=== PATIENT | female | born 1965 | race American Indian/Alaskan Native ===

== ENCOUNTER 2017-03-11 17:01 | Emergency (ER) | payer SELFPAY ==
[2017-03-11 17:32] VITALS: BP 127/76
== END 2017-03-12 01:10 | disposition left against medical advice (07) ==
LOC: ED 17:01
DX: M79.672 Pain in left foot (principal); Z53.21 Procedure and treatment not carried out due to patient leaving prior to being seen by health care provider

== ENCOUNTER 2017-04-02 17:39 | Emergency (ER) | payer BC ==
[2017-04-02] MEDS ORDERED: MOTRIN PO ONE (19:33)
[2017-04-02] MEDS ORDERED: ZOFRAN ODT PO ONE (19:33)
--- NOTE | 2017-04-03 01:35 | Emergency Department Report ---
Minor Respiratory - HPI Chief Complaint: Upper Respiratory Infection Stated Complaint: FLU LIKE SYMPTOMS/ASTHMA Time Seen by Provider: 04/03/17 00:32 Duration: 1 Day Pain Location: Throat, Other (body ache, headache and sore throat 8 out of 10 and aching) Severity: severe Minor Respiratory: Yes Rhinorrhea (congestion), Yes Sore Throat (denies Casa ), Yes Able to Tolerate Fluids, Yes Cough (dry cough), Yes Sick Contacts, Yes Fever (he says she took medication for cough and cold with fever), No Ear Pain, No Hemoptysis, No Chest Pain, No Shortness of Breath Other History: Patient here reports that she's been having body aches, headache , cough, runny nose and nausea times one day. Reported that she's been having fever and chills. Pain is 8 out of 10 and achy. [id number] cough and cold medication taken without any relief. Patient says she is here to get checked with his she wants to make sure she doesn't have the flu. Denies any abdominal or back pain. Denies any neck pain or stiffness. Denies any urinary burning frequency or urgency. Patient has past medical history of breast cancer with left lumpectomy. She also has a history of asthma and she is on asthma medication. She denies any wheezing or stridor. ED Review of Systems ROS: Stated complaint: FLU LIKE SYMPTOMS/ASTHMA Other details as noted in HPI Comment: All other systems reviewed and negative Constitutional: chills, fever Eyes: denies: eye pain, eye discharge, vision change ENT: throat pain, congestion. denies: ear pain, dental pain Respiratory: cough. denies: see HPI, orthopnea, shortness of breath, SOB with exertion, SOB at rest, stridor, wheezing Cardiovascular: denies: chest pain, palpitations, dyspnea on exertion, orthopnea , edema, syncope Gastrointestinal: nausea. denies: abdominal pain, vomiting, diarrhea, constipation, hematemesis, melena, hematochezia Genitourinary: denies: urgency, dysuria, frequency, hematuria, discharge Musculoskeletal: myalgia. denies: back pain, joint swelling, arthralgia Skin: denies: rash Neurological: headache. denies: weakness, numbness, paresthesias, confusion, abnormal gait, vertigo ED Past Medical Hx - Past Medical History Previous Medical History?: Yes Hx of Cancer: Yes (Left Breast) Hx Asthma: Yes Additional medical history: BREAST CANCER - Surgical History Past Surgical History?: Yes Additional Surgical History: Left Salpigectomy/ PORT INSERTION/ Left LUMPECTOMY - Family History Family history: hypertension - Social History Smoking Status: Never Smoker Substance Use Type: None - Medications Home Medications: Home Medications Medication Instructions Recorded Confirmed Last Taken Type Amoxicillin/K Clav Tab [Augmentin 1 tab PO Q12HR 10 Days #20 tab 04/03/17 Unknown Rx 875 mg] Cetirizine HCl [ZyrTEC] 10 mg PO QAM 14 Days #14 capsule 04/03/17 Unknown Rx Fluticasone [Flonase] 1 spray NS QDAY 14 Days #1 bottle 04/03/17 Unknown Rx Ibuprofen [Motrin] 600 mg PO Q8H PRN 5 Days #15 tablet 04/03/17 Unknown Rx Promethazine [Phenergan TAB] 25 mg PO Q8HR PRN 4 Days #12 tab 04/03/17 Unknown Rx guaiFENesin/CODEINE [Robitussin AC] 5 ml PO Q8H PRN 5 Days #75 04/03/17 Unknown Rx oral.liqd Minor Respiratory Exam - Exam General: Vital signs noted. No distress. Alert and acting appropriately. This is a 51-year-old female well-nourished well-developed in no acute distress. HEENT: Yes Moist Mucous Membranes (uvula is midline and oral airways patent), Yes Rhinorrhea (nasal mucosa congested with erythema), No Pharyngeal Erythema, No Pharyngeal Exudates, No Conjuctival Injection, No Frontal Tenderness, No Maxillary Tenderness Ear: Neither TM Bulge, Neither TM Erythema (bilateral TM congested), Neither EAC Pain, Neither EAC Discharge Neck: Yes Supple (full range of motion, spine tenderness), No Adenopathy Lungs: Yes Cough (dry cough), No Good Air Exchange, No Wheezes, No Ronchi, No Stridor, No Labored Respirations, No Retractions, No Use of Accessory Muscles, No Other Abnormal Lung Sounds Heart: Yes Regular (S1, S2. Regular rate and rhythm and negative murmur), No Murmur Abdomen: Yes Normal Bowel Sounds, No Tenderness (soft, nontender the palpation in all quadrants. No guarding or rebound tenderness.), No Peritoneal Signs Skin: No Rash, No Edema Neurologic: Alert and oriented 3, GCS of 15. Speech is clear and fluid. Normal gait . No facial droop. Musculoskeletal: Unremarkable. MSK/extremity: patient with full range of motion to all extremities. No neurovascular compromise, +2 pulses in all extremities, +5 strength in all extremities. No joint crepitus, effusion or erythema. ED Course Vital Signs 04/02/17 19:25 Temperature 99.7 F H Pulse Rate 95 H Respiratory 20 Rate Blood Pressure 118/68 O2 Sat by Pulse 100 Oximetry - Reevaluation(s) Reevaluation #1: 04/03/17 03:00 Patient received ibuprofen 800 mg emergency room for fever and body ache and Zofran 8 mg by mouth for nausea. She is able to tolerate oral liquids in the emergency room ED Medical Decision Making - Lab Data Influenza A and B- - Medical Decision Making ED course: Patient here reports flulike symptoms since yesterday. She came to the emergency room to get checked to see if she has the flu. Patient has a history of asthma and she is on medication. Normal lungs except for dry cough. Patient is neurologically intact. He discussed with her dad and her flu test was negative. She received Motrin 800 mg by mouth and Zofran 8 mg ODT and emergency room. Patient stable throughout ED stay and she tolerated oral liquids without any difficulties. I discussed patient that she has upper respiratory infection with cough and congestion and fever. Discussed with her that I'll place her on antibiotic because of her asthma status and previous history of breast cancer. Patient agrees the discharge plan and agrees to follow up with her primary care physician in Wednesday and to return to the emergency room if her condition worsens. Patient discharged from ED with prescription for Augmentin, Motrin,Flonase, Zyrtec, Phenergan and guaifenesin with codeine Critical care attestation.: If time is entered above; I have spent that time in minutes in the direct care of this critically ill patient, excluding procedure time. ED Disposition Clinical Impression: Upper respiratory infection with cough and congestion, Fever and chills, Nausea alone Pharyngitis Qualifiers: Pharyngitis/tonsillitis etiology: unspecified etiology Qualified Code(s): J02.9 - Acute pharyngitis, unspecified Disposition: TO HOME OR SELFCARE Is pt being admited?: No Does the pt Need Aspirin: No Condition: Stable Instructions: Upper Respiratory Infection (ED), Acute Cough (ED), Fever in Adults (ED), Musculoskeletal Pain (ED) Additional Instructions: Please increase her fluid intake to 2-3 L of water per day Flush nostrils with saline nasal spray take antibiotic as prescribed F/U with primary care physician as instructed Please do not drive or operate heavy machinery while taking Phenergan or guaifenesin with codeine as thiese medication causes drowsiness Rest for 72 hours Take all medication as prescribed. Prescriptions: Amoxicillin/K Clav Tab [Augmentin 875 mg] 1 tab PO Q12HR 10 Days #20 tab Cetirizine HCl [ZyrTEC] 10 mg PO QAM 14 Days #14 capsule Fluticasone [Flonase] 1 spray NS QDAY 14 Days #1 bottle guaiFENesin/CODEINE [Robitussin AC] 5 ml PO Q8H PRN 5 Days #75 oral.liqd PRN Reason: Cough Ibuprofen [Motrin] 600 mg PO Q8H PRN 5 Days #15 tablet PRN Reason: Pain Promethazine [Phenergan TAB] 25 mg PO Q8HR PRN 4 Days #12 tab PRN Reason: Nausea Referrals: your, primary care physician [Other] - 04/05/17 [facility] [Outside] - 04/05/17 Forms: Work/School Release Form(ED)
[2017-04-03 03:26] VITALS: BP 97/67
== END 2017-04-03 03:26 | disposition home or self-care (01) ==
LOC: ED 17:39
DX: J02.9 Acute pharyngitis, unspecified (principal); R11.0 Nausea; J45.909 Unspecified asthma, uncomplicated; Z85.3 Personal history of malignant neoplasm of breast; Z90.79 Acquired absence of other genital organ(s); Z88.8 Allergy status to other drugs, medicaments and biological substances
CPT/HCPCS: 87400; 99282; Q0162

== ENCOUNTER 2018-09-16 09:40 | Outpatient (CLI) | payer BC ==
--- NOTE | 2018-09-16 20:46 | Magnetic Resonance Report ---
PROCEDURE: MR UE JOINT RT WO CON TECHNIQUE: MRI was performed of the right shoulder using standard pulse sequences HISTORY: PAIN IN RIGHT SHOULDER COMPARISONS: None FINDINGS: Rotator cuff: There is complete supraspinatus tear with 4 cm of retraction of the tendon away from th e insertion site at the greater tuberosity. The torn end sits immediately above the superior labrum. The infraspinatus and subscapularis tendons are intact. The teres minor tendon is thickened and there is a cyst extending into the tendon all along the tendon fibers. ? Glenohumeral joint: There is elevation of the humeral head with respect to the glenoid secondary to c hronic supraspinatus tear. The humeral head nearly abuts the acromion process. There is a small joint effusion that extends into the subcoracoid recess in the subacromial subdeltoid bursa. There is oste ophyte formation on the humeral head. ? Acromioclavicular joint: The acromioclavicular joint is normally aligned. There is subchondral cyst f ormation in the distal clavicle. ? Biceps tendon: The biceps tendon is in a normal location and has a normal signal intensity and appear ance ? Marrow signal: There is normal osseous marrow signal. ? IMPRESSION: 1. 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 2. Teres minor tendinopathy 3. Elevation of the humeral head with respect to the glenoid secondary to chronic supraspinatus tear 4. 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
== END 2018-09-16 09:41 | disposition home or self-care (01) ==
LOC: MRI 09:40
PROVIDERS: ATTEND Orthopaedic Surgery
DX: M75.121 Complete rotator cuff tear or rupture of right shoulder, not specified as traumatic (principal); M19.011 Primary osteoarthritis, right shoulder; J45.909 Unspecified asthma, uncomplicated

== ENCOUNTER 2019-01-12 08:35 | Day surgery (SDC) | payer BC, MEDICAID ==
[~2019-01-12 08:35] MED LIST: ceFAZolin/STERILE WATER 2 GM/20 ML SYRINGE IV NR
[2019-01-12] MEDS ORDERED: fentaNYL 100 MCG/2 ML INJ IV PRN (11:30)
[2019-01-12] MEDS ORDERED: fentaNYL 100 MCG/2 ML INJ IV NR (11:30)
[2019-01-12] MEDS ORDERED: ONDANSETRON 4 MG/2 ML INJ IV PRN (11:30)
--- NOTE | 2019-01-12 11:32 | Anesthesia Consultation ---
Anesthesia Consult and Med Hx Date of service: 01/12/19 - Airway Anesthetic Teeth Evaluation: Good, Caps ROM Head & Neck: Adequate Mental/Hyoid Distance: Adequate Mallampati Class: Class II Intubation Access Assessment: Good - Pre-Operative Health Status ASA Pre-Surgery Classification: ASA2 Proposed Anesthetic Plan: General Nerve Block: IS - Pulmonary Hx Smoking: No Hx Asthma: Yes (INHALER PRN) Hx Sleep Apnea: No (JOESPH PRE SCREEN LOW RISK) - Cardiovascular System Hx Hypertension: No - Other Systems Hx Cancer: Yes
--- NOTE | 2019-01-12 11:32 | Anesthesia Day of Surgery ---
Anesthesia Day of Surgery - Day of Surgery Patient Examined: Yes Patient H&P Reviewed: Yes Patient is NPO: Yes
[2019-01-12] MEDS ORDERED: fentaNYL 100 MCG/2 ML INJ ONE (11:39)
[2019-01-12] MEDS ORDERED: BUPIVACAINE-EPINEPHRINE/PF 0.5%-1:200,000 (30 ML) VIAL INFILTRATI ONE ×2 (11:43→12:56)
[2019-01-12] MEDS ORDERED: LACTATED RINGERS 1,000 ML IV SCH (12:00)
[2019-01-12] MEDS ORDERED: MIDAZOLAM 2 MG/2 ML INJ IV NR (12:00)
[2019-01-12] MEDS ORDERED: ROCURONIUM 50 MG/5 ML INJ IV ONE (12:43)
[2019-01-12] MEDS ORDERED: ONDANSETRON 4 MG/2 ML INJ ONE (12:43)
[2019-01-12] MEDS ORDERED: NEOSTIGMINE 10MG/10 ML INJ MDV ONE (12:43)
[2019-01-12] MEDS ORDERED: LIDOCAINE-MPF (0.5%) 5 MG/1 ML VIAL 50 ML INFILTRATI ONE (12:43)
[2019-01-12] MEDS ORDERED: fentaNYL 250 MCG/5 ML INJ ONE (12:43)
[2019-01-12] MEDS ORDERED: dexAMETHasone 20 MG/5 ML VIAL ONE (12:43)
[2019-01-12] MEDS ORDERED: GLYCOPYRROLATE 0.4 MG/2 ML INJ ONE (12:43)
[2019-01-12] MEDS ORDERED: PHENYLEPHRINE/NS 1,000 MCG/10 ML SYRINGE (OR USE) IV ONE (12:43)
[2019-01-12] MEDS ORDERED: PROPOFOL 200 MG/20 ML VIAL IV ONE (12:44)
[2019-01-12] MEDS ORDERED: methylPREDNISolone ACETATE 40 MG/1 ML INJ ONE (12:56)
[2019-01-12] MEDS ORDERED: EPINEPHrine/PF (1:1,000) 1 MG/1 ML INJ ONE (12:56)
[2019-01-12] MEDS ORDERED: LACTATED RINGERS 1,000 ML ONE (14:29)
[2019-01-12] MEDS ORDERED: PHENYLEPHRINE 10 MG/1 ML INJ SDV ONE (14:41)
[2019-01-12] MEDS ORDERED: SODIUM CHLORIDE 0.9% 100 ML ONE (14:41)
[2019-01-12] MEDS ORDERED: SODIUM CHLORIDE 0.9% IRRIG SOLN 3000 ML IR ONE (15:40)
--- NOTE | 2019-01-12 15:42 | Procedure Note ---
Date of procedure: 01/12/19 Pre-op diagnosis: full-thickness rotator cuff tear right shoulder Post-op diagnosis: same Procedure: Arthroscopy right shoulder with subacromial decompression and rotator cuff tendon using suture anchors Procedure The patient was brought to the OR after being given a scalene nerve block for postop pain management . She was placed in the OR table in supine position following induction and intubation by anesthesia patient was placed in the left lateral decubitus position the right upper extremity was prepped and draped in the usual sterile manner. A timeout procedure was done to identify the patient and the correct operative site. Routine arthroscopic portals were made following introduction of the arthroscope and instruments and insufflation of the subacromial space with normal saline solution patient was noted to have a full-thickness rotator cuff tear which extended from the supraspinatus anteriorly towards the infraspinatus posteriorly in addition he was also noted to have abundant synovial bursal thickening as well as significant impingement from the acromion and acromioclavicular joints. Using a tissue ablator the soft tissue was removed from both the bursal tissues as well as the periosteal tissues overlying the distal acromion and acromioclavicular joints A large bur was used to debride the bony impingement again this was done under arthroscopic visualization. The anatomic footprint was then seen and debrided using the tissue ablator the rotator cuff tendon was grasped using a tissue grasper and appeared to move quite mobile and to anterior cruciate ligament footprint.Next 2 suture anchor sutures were placed into these supraspinatus tendon anteriorly as well as the infraspinatus tendon posteriorly the suture anchors were secured into the greater tuberosity followed by tightening of the sutures and pulling the rotator cuff tendon firmly onto the anatomic footprint arthroscopic photographs were obtained showing good placement of the rotator cuff repair following this the wound was copiously irrigated via stab wounds were repaired with 2 postop dressings were applied the patient was extubated and was taken to postanesthesia recovery in stable condition. Patient will also receive a scalene nerve block for postop pain management Anesthesia: MAC, regional Surgeon: YARELI AG [employer] Advisor: RENEE SADLER Estimated blood loss: 50-100ml Pathology: none Condition: stable Disposition: PACU
[2019-01-12] MEDS ORDERED: EPINEPHrine RACEMIC 2.25% 0.5ML NEBU IH ONE ×2 (17:00)
[2019-01-12] MEDS ORDERED: ONDANSETRON 4 MG/2 ML INJ IV ONE (17:09)
[2019-01-12] MEDS ORDERED: ALBUTEROL 2.5 MG/3 ML NEBU IH PRN (17:14)
[2019-01-12] MEDS ORDERED: ALBUTEROL 2.5 MG/3 ML NEBU IH ONE (17:15)
[2019-01-12 18:05] VITALS: BP 123/69
--- NOTE | 2019-01-12 19:14 | Post Anesthesia Evaluation ---
- Post Anesthesia Evaluation Patient Participated: Yes Airway Patent: Yes Stable Respiratory Function: Yes Nausea/Vomiting: No Temp > 96.8F: Yes Pain Manageable: Yes Adequeate Hydration: Yes Anesthesia Complications: No Block Receding Appropriately: Not Applicable (block for post op analgesia) Other Comments: Patient complained of "not breathing right" in PACU. Received racemic epi (initial concern for stridor) and albuterol neb. Lungs clear, normal work of breathing, no episode of desaturation and VS normal. Symptoms most likely associted with phrenic nerve involvement in interscalene nerve block. Symptoms resolved with reassurance. At time of d/c, patient in no acute distress.
== END 2019-01-12 18:52 | disposition home or self-care (01) ==
LOC: OR 08:35
PROVIDERS: ATTEND Orthopaedic Surgery
DX: M75.101 Unspecified rotator cuff tear or rupture of right shoulder, not specified as traumatic (principal); H40.9 Unspecified glaucoma; J45.909 Unspecified asthma, uncomplicated; M75.41 Impingement syndrome of right shoulder; Z79.899 Other long term (current) drug therapy; Z98.49 Cataract extraction status, unspecified eye; Z85.3 Personal history of malignant neoplasm of breast; Z98.890 Other specified postprocedural states; Z88.8 Allergy status to other drugs, medicaments and biological substances
CPT/HCPCS: 29826; 29827; 64415; A4217; C1713; J0171; J0690; J1100; J2250; J2370; J2405; J2704; J2710; J3010; J7120; L1830; 64450; J1030